=== PATIENT | female | born 1960 | race Caucasian/White ===

== ENCOUNTER 2018-05-14 16:56 | Emergency (ER) | payer BC, MEDICARE ==
[2018-05-14 17:45] VITALS: TEMP 98.1
[2018-05-14] MEDS ORDERED: DIAZEPAM 2 MG TAB PO STA (18:55)
--- NOTE | 2018-05-14 19:06 | ED ---
General Adult HPI - General Chief complaint: Recheck/Abnormal Lab/Rx Stated complaint: withdrawals Time Seen by Provider: 05/14/18 18:19 Source: patient, family, RN notes reviewed Mode of arrival: ambulatory Limitations: no limitations - History of Present Illness Initial comments: 57-year-old female presents to the emergency department for a chief complaint of benzodiazepine withdrawal x 3 days. Patient states she has been on Xanax for anxiety and depression which she takes for sleep at night. Patient states she has prescribed 2 mg at night to sleep. Patient states that she has been "double dosing" and taking 4 mg at night to sleep because 2 mg is not helping. Patient states that she ran out of her prescription of Xanax about 3 days ago. She does still have her [place]. She states that she has developed tremors and feels shaky. Patient admits to mild diaphoresis. She states she has not slept much last night. Patient denies any thoughts of suicide or harming herself. Patient denies any thoughts of harming anyone else. Patient states she did contact her psychiatrist who normally prescribes her Xanax. She states he would not refill the prescription until he could see her. Patient will be seeing him in 5 days at her appointment. Patient has no other complaints at this time including shortness of breath, difficulty breathing, chest pain, abdominal pain, nausea or vomiting, headache, or visual changes. - Related Data Home Medications Medication Instructions Recorded Confirmed ALPRAZolam [Xanax] 2 mg PO BID 05/14/18 05/14/18 ALPRAZolam [Xanax] 4 mg PO HS 05/14/18 05/14/18 Levothyroxine Sodium [Synthroid] 50 mcg PO DAILY 05/14/18 05/14/18 [place] Carbonate 300 mg PO BID 05/14/18 05/14/18 Melatonin 10 mg PO HS 05/14/18 05/14/18 Omeprazole 10 mg PO DAILY 05/14/18 05/14/18 Topiramate 50 mg PO BID 05/14/18 05/14/18 diphenhydrAMINE HCL [Benadryl] 25 mg PO HS 05/14/18 05/14/18 metFORMIN HCL [Glucophage Xr] 500 mg PO BID 05/14/18 05/14/18 Previous Rx's Medication Instructions Recorded Diazepam [Valium] 2 mg PO Q8HR PRN 3 Days #9 tab 05/14/18 Allergies Allergy/AdvReac Type Severity Reaction Status Date / Time Sulfa (Sulfonamide Allergy Swelling Verified 05/14/18 18:26 Antibiotics) Review of Systems ROS Statement: Those systems with pertinent positive or pertinent negative responses have been documented in the HPI. ROS Other: All systems not noted in ROS Statement are negative. Past Medical History Past Medical History: Hypertension Additional Past Medical History / Comment(s): Denies, "just my mental; bipolar, manic-depressive, schitzophrenia, panic attacks." Insomnia. History of Any Multi-Drug Resistant Organisms: None Reported Past Surgical History: Bariatric Surgery, Bladder Surgery, Section, Hysterectomy Additional Past Surgical History / Comment(s): skin removal december 13, laprascopy on right knee, receives steroid shots for "no cartilage on the knee". Past Anesthesia/Blood Transfusion Reactions: No Reported Reaction Past Psychological History: Anxiety, Bipolar, Depression, Panic Disorder, Schizophrenia Smoking Status: Never smoker Past Alcohol Use History: None Reported Past Drug Use History: Marijuana, Prescription Drug Abuse - Past Family History Father Family Medical History: No Reported History Mother Family Medical History: Cancer, Musculoskeletal Disorder, Neurologic Disorder, Pulmonary Embolus Additional Family Medical History / Comment(s): sister, Cerebral Palsy. Mom ( broken heart syndrome) related to son's . In which he of ETOH. General Exam Limitations: no limitations General appearance: alert (patient is sitting up in bed alert and cooperative), anxious (patient does appear anxious, ) Head exam: Present: atraumatic, normocephalic, normal inspection Eye exam: Present: normal appearance. Absent: scleral icterus, conjunctival injection ENT exam: Present: normal exam, normal oropharynx, mucous membranes moist, normal external ear exam Neck exam: Present: normal inspection, full ROM. Absent: tenderness, meningismus, lymphadenopathy Respiratory exam: Present: normal lung sounds bilaterally. Absent: respiratory distress, wheezes, rales, rhonchi, stridor Cardiovascular Exam: Present: regular rate, normal rhythm, normal heart sounds. Absent: systolic murmur, diastolic murmur, rubs, gallop, clicks GI/Abdominal exam: Present: soft, normal bowel sounds. Absent: distended, tenderness, guarding, rebound, rigid Extremities exam: Present: full ROM (moving all extremities without difficulty) Neurological exam: Present: alert, oriented X3, CN II-XII intact. Absent: motor sensory deficit Psychiatric exam: Present: anxious. Absent: homicidal ideation, suicidal ideation Skin exam: Present: warm, dry, intact, normal color. Absent: rash, diaphoretic Course Vital Signs 05/14/18 05/14/18 17:40 20:24 Temperature 98.1 F Pulse Rate 86 65 Respiratory 18 20 Rate Blood Pressure 168/101 157/71 O2 Sat by Pulse 99 97 Oximetry Medical Decision Making - Medical Decision Making 57-year-old female presents to the emergency department for a chief complaint of Xanax withdrawal. Patient has tremors and appears to be anxious. Patient denies any chest pain shortness of breath difficulty breathing nausea vomiting or abdominal pain. She states she is not able to sleep. Patient states she has been doubling her dose of Xanax. Psychiatrist is aware and refusing to prescribed until he sees her in 5 days at her appointment. No diaphoresis noted. Heart rate 86. Patient does seem anxious but is alert and oriented. She is cooperative. Patient was given Valium which did help her to feel better. On reevaluation patient states she is feeling much better and her shakiness has decreased. She will be given a prescription for PRN Valium when she begins to develop symptoms. She is to follow-up at her scheduled appointment in 5 days for her medication refill. She is to return to the emergency Department if she has any worsening symptoms which patient voices being aware of. This case was discussed with Dr Wooten. Disposition Clinical Impression: Benzodiazepine dependence Disposition: HOME SELF-CARE Condition: Good Instructions: Benzodiazepine Abuse (ED) Additional Instructions: Please take Valium as needed. Please follow up with psychiatrist at your scheduled appointment in 5 days. Call to see if you can be seen earlier. Return to the emergency department if you've any worsening symptoms. Prescriptions: Diazepam [Valium] 2 mg PO Q8HR PRN 3 Days #9 tab PRN Reason: Anxiety Is patient prescribed a controlled substance at d/c from ED?: No Referrals: Francisca Ewing NPC [REFERRING] - 1-2 days Time of Disposition: 20:03
[2018-05-14 20:30] VITALS: BP 157/71; PULSE 65; RESP 20
== END 2018-05-14 20:34 | disposition home or self-care (01) ==
LOC: SUPCPDRO 16:56 → EC 16:56
DX: F13.20 Sedative, hypnotic or anxiolytic dependence, uncomplicated (principal); R25.1 Tremor, unspecified; F41.0 Panic disorder [episodic paroxysmal anxiety]; F31.9 Bipolar disorder, unspecified; Z79.84 Long term (current) use of oral hypoglycemic drugs; Z79.899 Other long term (current) drug therapy; Z88.2 Allergy status to sulfonamides
CPT/HCPCS: 99283

== ENCOUNTER 2019-07-13 09:53 | Emergency (ER) | payer BC, MEDICARE ==
[2019-07-13] MEDS ORDERED: SODIUM CHLORIDE 0.9% 1,000 ML IV STA (10:18)
[2019-07-13] MEDS ORDERED: ONDANSETRON 4 MG/2 ML VIAL IVP STA (10:18)
[2019-07-13] MEDS ORDERED: KETOROLAC 30 MG/ML 1 ML VIAL IVP STA (10:18)
[2019-07-13] MEDS ORDERED: LORazepam 2 MG/ML INJ IV STA (10:19)
--- NOTE | 2019-07-13 10:44 | ED ---
General Adult HPI - General Chief complaint: Anxiety Stated complaint: Back Pain, Nausea, Anxiety Time Seen by Provider: 07/13/19 10:05 Source: patient, RN notes reviewed Mode of arrival: wheelchair Limitations: no limitations - History of Present Illness Initial comments: This a 58-year-old female presents emergency Department chief complaint of abdominal pain, nausea vomiting, anxiety and suicidal ideation. Patient states that she started getting sick over the last few days where she cannot hold down her medications. She's had excessive vomiting, diarrhea and right lower quadrant abdominal pain. She states pain comes and goes. She states it makes his difficulty urinating. She reports no fevers chills. She states that she does get hot and cold flashes. She denies chest pain or shortness breath. Patient states that she just wants having to and she states she cannot take her anxiety event or lithium states that she feels suicidal. Patient did admit that she had some back pain or right-sided flank pain more week ago but that resolve d. Patient denies any sick contacts. Patient denies being homicidal - Related Data Home Medications Medication Instructions Recorded Confirmed ALPRAZolam [Xanax] 2 mg PO BID 05/14/18 05/14/18 ALPRAZolam [Xanax] 4 mg PO HS 05/14/18 05/14/18 Levothyroxine Sodium [Synthroid] 50 mcg PO DAILY 05/14/18 05/14/18 [place] Carbonate 300 mg PO BID 05/14/18 05/14/18 Melatonin 10 mg PO HS 05/14/18 05/14/18 Omeprazole 10 mg PO DAILY 05/14/18 05/14/18 Topiramate 50 mg PO BID 05/14/18 05/14/18 diphenhydrAMINE HCL [Benadryl] 25 mg PO HS 05/14/18 05/14/18 metFORMIN HCL [Glucophage Xr] 500 mg PO BID 05/14/18 05/14/18 Previous Rx's Medication Instructions Recorded Diazepam [Valium] 2 mg PO Q8HR PRN 3 Days #9 tab 05/14/18 Cephalexin [Keflex] 500 mg PO Q8HR #21 cap 07/13/19 Ondansetron Odt [Zofran Odt] 4 mg PO Q8HR PRN #10 tab 07/13/19 Allergies Allergy/AdvReac Type Severity Reaction Status Date / Time diphenhydramine Allergy Swelling Verified 07/13/19 11:32 [From Benadryl] Sulfa (Sulfonamide Allergy Swelling Verified 07/13/19 11:32 Antibiotics) Review of Systems ROS Statement: Those systems with pertinent positive or pertinent negative responses have been documented in the HPI. ROS Other: All systems not noted in ROS Statement are negative. Past Medical History Past Medical History: Hypertension Additional Past Medical History / Comment(s): Denies, "just my mental; bipolar, manic-depressive, schitzophrenia, panic attacks." Insomnia. History of Any Multi-Drug Resistant Organisms: None Reported Past Surgical History: Bariatric Surgery, Bladder Surgery, Section, Hysterectomy Additional Past Surgical History / Comment(s): skin removal december 13, laprascopy on right knee, receives steroid shots for "no cartilage on the knee". Past Anesthesia/Blood Transfusion Reactions: No Reported Reaction Past Psychological History: Anxiety, Bipolar, Depression, Panic Disorder, Schizophrenia Smoking Status: Never smoker Past Alcohol Use History: None Reported Past Drug Use History: Marijuana, Prescription Drug Abuse - Past Family History Father Family Medical History: No Reported History Mother Family Medical History: Cancer, Musculoskeletal Disorder, Neurologic Disorder, Pulmonary Embolus Additional Family Medical History / Comment(s): sister, Cerebral Palsy. Mom (broken heart syndrome) related to son's . In which he of ETOH. General Exam Limitations: no limitations General appearance: alert, in no apparent distress, anxious Head exam: Present: atraumatic, normocephalic, normal inspection Eye exam: Present: normal appearance, PERRL, EOMI. Absent: scleral icterus, conjunctival injection, periorbital swelling ENT exam: Present: normal exam, mucous membranes moist Neck exam: Present: normal inspection. Absent: tenderness, meningismus, lymphadenopathy Respiratory exam: Present: normal lung sounds bilaterally. Absent: respiratory distress, wheezes, rales, rhonchi, stridor Cardiovascular Exam: Present: normal rhythm, tachycardia, normal heart sounds. Absent: systolic murmur, diastolic murmur, rubs, gallop, clicks GI/Abdominal exam: Present: soft, tenderness (Moderate right-sided), normal bowel sounds. Absent: distended, guarding, rebound, rigid Back exam: Present: normal inspection, full ROM. Absent: tenderness, CVA tenderness (R), CVA tenderness (L), paraspinal tenderness, vertebral tenderness Neurological exam: Present: alert, oriented X3, CN II-XII intact Psychiatric exam: Present: anxious Skin exam: Present: warm, dry, intact, normal color. Absent: rash Course Vital Signs 07/13/19 09:58 Temperature 98.6 F Pulse Rate 109 H Respiratory 24 Rate Blood Pressure 182/84 O2 Sat by Pulse 99 Oximetry Medical Decision Making - Medical Decision Making Patient presented for multiple complaints. Patient lab urinalysis and CT CT was nonspecific findings including fatty liver, gallstones. Patient's found to have urinary tract infection, was moderately dehydrated lactic acid was elevated. Patient given 2 L of fluid, antiemetics and Rocephin. Patient symptoms greatly improved. Patient evaluated by EPS case discussed with psychiatrist patient is not suicidal she states that she said irrational things while she was in distress. Patient signs a safety plan. Patient offered admission for UTI patient declines patient will be discharged on antibiotics and antibiotics. - Lab Data Result diagrams: 07/13/19 10:34 07/13/19 10:34 Lab Results 07/13/19 07/13/19 07/13/19 Range/Units 10:34 10:34 10:34 WBC 9.8 (3.8-10.6) k/uL RBC 5.74 H (3.80-5.40) m/uL Hgb 15.7 (11.4-16.0) gm/dL Hct 47.1 H (34.0-46.0) % MCV 82.1 (80.0-100.0) fL MCH 27.4 (25.0-35.0) pg MCHC 33.4 (31.0-37.0) g/dL RDW 14.3 (11.5-15.5) % Plt Count 230 (150-450) k/uL Neutrophils % 69 % Lymphocytes % 23 % Monocytes % 4 % Eosinophils % 2 % Basophils % 1 % Neutrophils # 6.7 (1.3-7.7) k/uL Lymphocytes # 2.3 (1.0-4.8) k/uL Monocytes # 0.4 (0-1.0) k/uL Eosinophils # 0.2 (0-0.7) k/uL Basophils # 0.1 (0-0.2) k/uL Sodium 143 (137-145) mmol/L Potassium 4.1 (3.5-5.1) mmol/L Chloride 109 H (98-107) mmol/L Carbon Dioxide 20 L (22-30) mmol/L Anion Gap 14 mmol/L BUN 16 (7-17) mg/dL Creatinine 1.00 (0.52-1.04) mg/dL Est GFR (CKD-EPI)AfAm 73 (>60 ml/min/1.73 sqM) Est GFR (CKD-EPI)NonAf 64 (>60 ml/min/1.73 sqM) Glucose 161 H (74-99) mg/dL Plasma Lactic Acid Junior 2.7 H* (0.7-2.0) mmol/L Calcium 10.6 H (8.4-10.2) mg/dL Total Bilirubin 1.0 (0.2-1.3) mg/dL AST 47 H (14-36) U/L ALT 44 (9-52) U/L Alkaline Phosphatase 88 (38-126) U/L Troponin I (0.000-0.034) ng/mL Total Protein 8.7 H (6.3-8.2) g/dL Albumin 4.8 (3.5-5.0) g/dL Amylase 39 (30-110) U/L Lipase 159 (23-300) U/L Urine Color Urine Appearance (Clear) Urine pH (5.0-8.0) Ur Specific [place] (1.001-1.035) Urine Protein (Negative) Urine Glucose (UA) (Negative) Urine Ketones (Negative) Urine Blood (Negative) Urine Nitrite (Negative) Urine Bilirubin (Negative) Urine Urobilinogen (<2.0) mg/dL Ur Leukocyte Esterase (Negative) Urine RBC (0-5) /hpf Urine WBC (0-5) /hpf Ur Squamous Epith Cells (0-4) /hpf Urine Bacteria (None) /hpf Urine Mucus (None) /hpf Urine Opiates Screen (NotDetected) Ur Oxycodone Screen (NotDetected) Urine Methadone Screen (NotDetected) Ur Propoxyphene Screen (NotDetected) Ur Barbiturates Screen (NotDetected) U Tricyclic Antidepress (NotDetected) Ur Phencyclidine Scrn (NotDetected) Ur Amphetamines Screen (NotDetected) U Methamphetamines Scrn (NotDetected) U Benzodiazepines Scrn (NotDetected) Urine Cocaine Screen (NotDetected) U Marijuana (THC) Screen (NotDetected) 07/13/19 07/13/19 Range/Units 10:34 11:33 WBC (3.8-10.6) k/uL RBC (3.80-5.40) m/uL Hgb (11.4-16.0) gm/dL Hct (34.0-46.0) % MCV (80.0-100.0) fL MCH (25.0-35.0) pg MCHC (31.0-37.0) g/dL RDW (11.5-15.5) % Plt Count (150-450) k/uL Neutrophils % % Lymphocytes % % Monocytes % % Eosinophils % % Basophils % % Neutrophils # (1.3-7.7) k/uL Lymphocytes # (1.0-4.8) k/uL Monocytes # (0-1.0) k/uL Eosinophils # (0-0.7) k/uL Basophils # (0-0.2) k/uL Sodium (137-145) mmol/L Potassium (3.5-5.1) mmol/L Chloride (98-107) mmol/L Carbon Dioxide (22-30) mmol/L Anion Gap mmol/L BUN (7-17) mg/dL Creatinine (0.52-1.04) mg/dL Est GFR (CKD-EPI)AfAm (>60 ml/min/1.73 sqM) Est GFR (CKD-EPI)NonAf (>60 ml/min/1.73 sqM) Glucose (74-99) mg/dL Plasma Lactic Acid Junior (0.7-2.0) mmol/L Calcium (8.4-10.2) mg/dL Total Bilirubin (0.2-1.3) mg/dL AST (14-36) U/L ALT (9-52) U/L Alkaline Phosphatase (38-126) U/L Troponin I <0.012 (0.000-0.034) ng/mL Total Protein (6.3-8.2) g/dL Albumin (3.5-5.0) g/dL Amylase (30-110) U/L Lipase (23-300) U/L Urine Color Yellow Urine Appearance Cloudy H (Clear) Urine pH 6.0 (5.0-8.0) Ur Specific [place] 1.027 (1.001-1.035) Urine Protein 1+ H (Negative) Urine Glucose (UA) Negative (Negative) Urine Ketones 1+ H (Negative) Urine Blood Negative (Negative) Urine Nitrite Positive H (Negative) Urine Bilirubin Negative (Negative) Urine Urobilinogen <2.0 (<2.0) mg/dL Ur Leukocyte Esterase Large H (Negative) Urine RBC 2 (0-5) /hpf Urine WBC >182 H (0-5) /hpf Ur Squamous Epith Cells 4 (0-4) /hpf Urine Bacteria Many H (None) /hpf Urine Mucus Rare H (None) /hpf Urine Opiates Screen Detected H (NotDetected) Ur Oxycodone Screen Not Detected (NotDetected) Urine Methadone Screen Not Detected (NotDetected) Ur Propoxyphene Screen Not Detected (NotDetected) Ur Barbiturates Screen Not Detected (NotDetected) U Tricyclic Antidepress Not Detected (NotDetected) Ur Phencyclidine Scrn Not Detected (NotDetected) Ur Amphetamines Screen Not Detected (NotDetected) U Methamphetamines Scrn Not Detected (NotDetected) U Benzodiazepines Scrn Detected H (NotDetected) Urine Cocaine Screen Not Detected (NotDetected) U Marijuana (THC) Screen Detected H (NotDetected) Disposition Clinical Impression: Acute anxiety, Gastroenteritis, Urinary tract infection Disposition: HOME SELF-CARE Condition: Stable Instructions (If sedation given, give patient instructions): Generalized Anxiety Disorder (ED) Additional Instructions: Please return to the Emergency Department if symptoms worsen or any other concerns. Prescriptions: Cephalexin [Keflex] 500 mg PO Q8HR #21 cap Ondansetron Odt [Zofran Odt] 4 mg PO Q8HR PRN #10 tab PRN Reason: Nausea Is patient prescribed a controlled substance at d/c from ED?: No Referrals: Francisca Ewing NPC [REFERRING] - 1-2 days Time of Disposition: 13:45
[2019-07-13 11:03] LABS: Basophils # (A) 0.1 k/uL (0-0.2); Basophils % (A) 1 %; Eosinophils # (A) 0.2 k/uL (0-0.7); Eosinophils % (A) 2 %; HCT 47.1 % (34.0-46.0); HGB 15.7 gm/dL (11.4-16.0); Lymphocytes # (A) 2.3 k/uL (1.0-4.8); Lymphocytes % (A) 23 %; MCH 27.4 pg (25.0-35.0); MCHC 33.4 g/dL (31.0-37.0); MCV 82.1 fL (80.0-100.0); Mean Platelet Volume 9.2; Monocytes # (A) 0.4 k/uL (0-1.0); Monocytes % (A) 4 %; Neutrophils # (A) 6.7 k/uL (1.3-7.7); Neutrophils % (A) 69 %; Platelet Count 230 k/uL (150-450); RBC 5.74 m/uL (3.80-5.40); RDW 14.3 % (11.5-15.5); WBC 9.8 k/uL (3.8-10.6)
--- NOTE | 2019-07-13 11:21 | CT ---
EXAMINATION TYPE: CT abdomen pelvis wo con DATE OF EXAM: 07/13/2019 COMPARISON: 01/[birth year]/1950 HISTORY: Back pain, nausea, anxiety CT DLP: 1282 mGycm Automated exposure control for dose reduction was used. TECHNIQUE: Helical acquisition of images was performed from the lung bases through the pelvis. FINDINGS: The lungs are clear. There is a tiny pericardial effusion. Low attenuation involving the liver sugges tive of fatty infiltration there is a tiny gallstone. No hydronephrosis. No nephrolithiasis. Adrenal glands normal. By noncontrast technique the pancreas d emonstrates no abnormality. Bowel gas pattern nonspecific. There is a small hiatal hernia. No evidence of bowel obstruction. Ramesh ges of diverticulosis noted. No free fluid. Bladder is nondistended. Calcifications in pelvis are vascular: A somewhat decompresse d and limited in assessment. Appendix is not seen with certainty. No inflammatory changes in the righ t lower quadrant. Degenerative change involving the lower lumbar spine with severe changes L5-S1. Arthropathy of the hi ps noted. IMPRESSION: 1. Findings suggest hepatic steatosis. 2. Nonspecific gas pattern with no obstruction. 3. Small hiatal hernia. 4. Cholelithiasis
[2019-07-13 11:25] LABS: Albumin 4.8 g/dL (3.5-5.0); Calcium 10.6 mg/dL (8.4-10.2); Potassium 4.1 mmol/L (3.5-5.1); Total Protein 8.7 g/dL (6.3-8.2)
[2019-07-13] MEDS ORDERED: SODIUM CHLORIDE 0.9% 1,000 ML IV ONE (11:34)
[2019-07-13] MEDS ORDERED: METOCLOPRAMIDE 5 MG/ML 2 ML VIAL IVP STA (11:36)
[2019-07-13 12:05] LABS: Appearance,Urine Cloudy (Clear); Bacteria,Urine Many /hpf; Bilirubin,Urine Negative (Negative); Blood,Urine Negative (Negative); Color,Urine Yellow; Glucose,Urine (UA) Negative (Negative); Ketones,Urine 1+ (Negative); Leukocyte Esterase,Urine Large (Negative); Mucus,Urine Rare /hpf; Nitrite,Urine Positive (Negative); Protein,Urine 1+ (Negative); RBC,Urine 2 /hpf (0-5); Specific Gravity,Urine 1.027 (1.001-1.035); Squamous Epithelial Cell,Urine 4 /hpf (0-4); Urobilinogen,Urine <2.0 mg/dL (<2.0); WBC,Urine >182 /hpf (0-5)
[2019-07-13 12:06] LABS: Amphetamine Screen,Urine Not Detected (NotDetected); Barbiturate Screen,Urine Not Detected (NotDetected); Benzodiazepines Screen,Urine Detected (NotDetected); Cocaine Screen,Urine Not Detected (NotDetected); Methadone Screen, Urine Not Detected (NotDetected); Opiate Screen,Urine Detected (NotDetected); Oxycodone Screen, Urine Not Detected (NotDetected); Phencyclidine Screen,Urine Not Detected (NotDetected); Tricyclic Antidepressant,Urine Not Detected (NotDetected); Urn Cannabinoid Scrn Detected (NotDetected)
[2019-07-13] MEDS ORDERED: cefTRIAXone IN SWFI 1,000 MG/10 ML SYRINGE IVP STA (12:20)
[2019-07-13 14:03] VITALS: BP 128/76; PULSE 82; RESP 18; TEMP 97.8
== END 2019-07-13 14:02 | disposition home or self-care (01) ==
LOC: EC 09:53
DX: F41.9 Anxiety disorder, unspecified (principal); K52.9 Noninfective gastroenteritis and colitis, unspecified; N39.0 Urinary tract infection, site not specified; K80.20 Calculus of gallbladder without cholecystitis without obstruction; K76.0 Fatty (change of) liver, not elsewhere classified; E86.0 Dehydration; R74.0 Nonspecific elevation of levels of transaminase and lactic acid dehydrogenase [LDH]; I10 Essential (primary) hypertension; F41.0 Panic disorder [episodic paroxysmal anxiety]; G47.00 Insomnia, unspecified; F20.9 Schizophrenia, unspecified; Z88.2 Allergy status to sulfonamides; Z88.8 Allergy status to other drugs, medicaments and biological substances; Z79.899 Other long term (current) drug therapy
CPT/HCPCS: 82075; 36415; 80053; 82150; 83605; 83690; 84484; 85025; 81001; 80306; 87086; 87077; 87186; 74176; 99284; 96374; 96375 ×4; 96361 ×2; J2060; J2765; J2405; J0696; J1885

== ENCOUNTER 2021-10-31 20:42 | Emergency (ER) | payer BC, MEDICARE ==
[2021-10-31] MEDS ORDERED: LORazepam 2 MG/ML INJ IV STA (22:11)
--- NOTE | 2021-10-31 22:26 | ED ---
General Adult HPI - General Chief complaint: Recheck/Abnormal Lab/Rx Stated complaint: Syncope/SOB Time Seen by Provider: 10/31/21 21:32 Source: patient, family Mode of arrival: wheelchair Limitations: no limitations - History of Present Illness Initial comments: This patient is a 61-year-old woman who is here to have evaluation after she had a sort of episode at home approximately 90 minutes ago. The patient had taken a shower and then was sitting on the commode in the bathroom when she felt extremely funny. She felt very cold and shaky. She is experiencing a generalized weakness. When her went to see her. He states that she was sitting on the commode very tremulous, as she has been previously with severe panic attack. He states that she was looking at him and her eyes were crossed. She then became even more shaky and her eyes rolled back. He smacked her face a couple of times to see if she would regain consciousness. He states that after number seconds she seemed to come to but her eyes were still crossed and she was still shaky. There was no loss of continence. The patient did not fall or have any injury. She does note she has been having about 2 weeks where she has not felt like her usual self. She has been very cold and fatigued. She has had some bilateral rib pains. Onset/Timin -: minutes(s) Radiation: other (Bilateral ribs) Quality: aching Consistency: constant Improves with: none Worsens with: movement - Related Data Home Medications Medication Instructions Recorded Confirmed ALPRAZolam [Xanax] 4 mg PO HS 05/14/18 10/31/21 Escitalopram [Lexapro] 40 mg PO DAILY 10/31/21 10/31/21 Melatonin 30 mg PO HS 10/31/21 10/31/21 Allergies Allergy/AdvReac Type Severity Reaction Status Date / Time diphenhydramine Allergy Facial Verified 10/31/21 23:15 [From Benadryl] Swelling/SOB Sulfa (Sulfonamide Allergy Facial Verified 10/31/21 23:15 Antibiotics) Swelling/SOB Review of Systems ROS Statement: Those systems with pertinent positive or pertinent negative responses have been documented in the HPI. ROS Other: All systems not noted in ROS Statement are negative. Constitutional: Reports: chills, weakness Eyes: Denies: eye pain, vision change ENT: Denies: congestion Respiratory: Denies: cough, dyspnea, wheezes Cardiovascular: Denies: chest pain, palpitations, orthopnea, edema, syncope Gastrointestinal: Denies: abdominal pain, nausea, vomiting, diarrhea, constipation Genitourinary: Denies: dysuria, hematuria Musculoskeletal: Denies: back pain Skin: Denies: rash Neurological: Denies: headache, weakness, numbness Psychiatric: Reports: anxiety Past Medical History Past Medical History: Hypertension Additional Past Medical History / Comment(s): Denies, "just my mental; bipolar, manic-depressive, schitzophrenia, panic attacks." Insomnia. History of Any Multi-Drug Resistant Organisms: None Reported Past Surgical History: Bariatric Surgery, Bladder Surgery, Section, Hysterectomy Additional Past Surgical History / Comment(s): skin removal december 13, laprascopy on right knee, receives steroid shots for "no cartilage on the knee". Past Anesthesia/Blood Transfusion Reactions: No Reported Reaction Past Psychological History: Anxiety, Bipolar, Depression, Panic Disorder, Schizophrenia Smoking Status: Never smoker Past Alcohol Use History: None Reported Past Drug Use History: Marijuana, Prescription Drug Abuse - Past Family History Father Family Medical History: No Reported History Mother Family Medical History: Cancer, Musculoskeletal Disorder, Neurologic Disorder, Pulmonary Embolus Additional Family Medical History / Comment(s): sister, Cerebral Palsy. Mom (broken heart syndrome) related to son's . In which he of ETOH. General Exam Limitations: no limitations General appearance: alert, in no apparent distress, anxious Head exam: Present: atraumatic, normocephalic Eye exam: Present: normal appearance, PERRL, EOMI. Absent: scleral icterus, conjunctival injection ENT exam: Present: mucous membranes dry Neck exam: Present: normal inspection, full ROM Respiratory exam: Present: normal lung sounds bilaterally. Absent: respiratory distress, wheezes, rales, rhonchi, stridor Cardiovascular Exam: Present: normal rhythm, tachycardia, normal heart sounds. Absent: systolic murmur, diastolic murmur, rubs, gallop GI/Abdominal exam: Present: soft. Absent: distended, tenderness, guarding, rebound, rigid, mass Extremities exam: Present: normal inspection, normal capillary refill. Absent: pedal edema, calf tenderness Back exam: Present: normal inspection. Absent: CVA tenderness (R), CVA t enderness (L) Neurological exam: Present: alert, oriented X3, CN II-XII intact. Absent: motor sensory deficit Skin exam: Present: warm, dry, intact, normal color. Absent: rash Course Vital Signs 10/31/21 10/31/21 11/01/21 20:51 23:00 00:05 Temperature 98.7 F 98.4 F Pulse Rate 123 H 92 79 Respiratory 28 H 16 18 Rate Blood Pressure 103/54 137/86 136/93 O2 Sat by Pulse 98 97 97 Oximetry EKG Findings - EKG Results: EKG: interpreted by STORMY, sinus rhythm EKG shows: tachycardia (Rate 101 bpm) - Blocks, Thornton, Hypertrophy, ST Abn: AV and intraventricular conduction: right bundle branch block (fixed/intermittent, complete/incomplete) (Incomplete) QRS axis and voltage: pulmonary disease Medical Decision Making - Lab Data Result diagrams: 10/31/21 22:40 10/31/21 22:40 Lab Results 10/31/21 10/31/21 10/31/21 Range/Units 22:40 22:40 22:40 WBC 11.3 H (3.8-10.6) k/uL RBC 5.59 H (3.80-5.40) m/uL Hgb 16.1 H (11.4-16.0) gm/dL Hct 46.9 H (34.0-46.0) % MCV 83.9 (80.0-100.0) fL MCH 28.8 (25.0-35.0) pg MCHC 34.3 (31.0-37.0) g/dL RDW 14.7 (11.5-15.5) % Plt Count 220 (150-450) k/uL MPV 9.4 Neutrophils % 73 % Lymphocytes % 21 % Monocytes % 3 % Eosinophils % 1 % Basophils % 1 % Neutrophils # 8.3 H (1.3-7.7) k/uL Lymphocytes # 2.3 (1.0-4.8) k/uL Monocytes # 0.4 (0-1.0) k/uL Eosinophils # 0.1 (0-0.7) k/uL Basophils # 0.1 (0-0.2) k/uL PT (9.0-12.0) sec INR (<1.2) APTT (22.0-30.0) sec Sodium 140 (137-145) mmol/L Potassium 4.3 (3.5-5.1) mmol/L Chloride 105 (98-107) mmol/L Carbon Dioxide 21 L (22-30) mmol/L Anion Gap 14 mmol/L BUN 15 (7-17) mg/dL Creatinine 0.99 (0.52-1.04) mg/dL Est GFR (CKD-EPI)AfAm 72 (>60 ml/min/1.73 sqM) Est GFR (CKD-EPI)NonAf 63 (>60 ml/min/1.73 sqM) Glucose 104 H (74-99) mg/dL Calcium 9.6 (8.4-10.2) mg/dL Total Bilirubin 1.1 (0.2-1.3) mg/dL AST 41 H (14-36) U/L ALT 27 (4-34) U/L Alkaline Phosphatase 77 (38-126) U/L Troponin I <0.012 (0.000-0.034) ng/mL Total Protein 8.9 H (6.3-8.2) g/dL Albumin 4.8 (3.5-5.0) g/dL Urine Color Urine Appearance (Clear) Urine pH (5.0-8.0) Ur Specific [place] (1.001-1.035) Urine Protein (Negative) Urine Glucose (UA) (Negative) Urine Ketones (Negative) Urine Blood (Negative) Urine Nitrite (Negative) Urine Bilirubin (Negative) Urine Urobilinogen (<2.0) mg/dL Ur Leukocyte Esterase (Negative) Urine RBC (0-5) /hpf Urine WBC (0-5) /hpf Ur Squamous Epith Cells (0-4) /hpf Calcium Oxalate Crystal (None) /hpf Urine Bacteria (None) /hpf Hyaline Casts (0-2) /lpf Urine Mucus (None) /hpf Urine Opiates Screen (NotDetected) Ur Oxycodone Screen (NotDetected) Urine Methadone Screen (NotDetected) Ur Propoxyphene Screen (NotDetected) Ur Barbiturates Screen (NotDetected) U Tricyclic Antidepress (NotDetected) Ur Phencyclidine Scrn (NotDetected) Ur Amphetamines Screen (NotDetected) U Methamphetamines Scrn (NotDetected) U Benzodiazepines Scrn (NotDetected) Urine Cocaine Screen (NotDetected) U Marijuana (THC) Screen (NotDetected) 10/31/21 11/01/21 Range/Units 22:40 00:10 WBC (3.8-10.6) k/uL RBC (3.80-5.40) m/uL Hgb (11.4-16.0) gm/dL Hct (34.0-46.0) % MCV (80.0-100.0) fL MCH (25.0-35.0) pg MCHC (31.0-37.0) g/dL RDW (11.5-15.5) % Plt Count (150-450) k/uL MPV Neutrophils % % Lymphocytes % % Monocytes % % Eosinophils % % Basophils % % Neutrophils # (1.3-7.7) k/uL Lymphocytes # (1.0-4.8) k/uL Monocytes # (0-1.0) k/uL Eosinophils # (0-0.7) k/uL Basophils # (0-0.2) k/uL PT 10.9 (9.0-12.0) sec INR 1.0 (<1.2) APTT 22.3 (22.0-30.0) sec Sodium (137-145) mmol/L Potassium (3.5-5.1) mmol/L Chloride (98-107) mmol/L Carbon Dioxide (22-30) mmol/L Anion Gap mmol/L BUN (7-17) mg/dL Creatinine (0.52-1.04) mg/dL Est GFR (CKD-EPI)AfAm (>60 ml/min/1.73 sqM) Est GFR (CKD-EPI)NonAf (>60 ml/min/1.73 sqM) Glucose (74-99) mg/dL Calcium (8.4-10.2) mg/dL Total Bilirubin (0.2-1.3) mg/dL AST (14-36) U/L ALT (4-34) U/L Alkaline Phosphatase (38-126) U/L Troponin I (0.000-0.034) ng/mL Total Protein (6.3-8.2) g/dL Albumin (3.5-5.0) g/dL Urine Color Yellow Urine Appearance Cloudy H (Clear) Urine pH 6.0 (5.0-8.0) Ur Specific [place] 1.028 (1.001-1.035) Urine Protein 1+ H (Negative) Urine Glucose (UA) Negative (Negative) Urine Ketones 1+ H (Negative) Urine Blood Negative (Negative) Urine Nitrite Positive H (Negative) Urine Bilirubin Negative (Negative) Urine Urobilinogen <2.0 (<2.0) mg/dL Ur Leukocyte Esterase Moderate H (Negative) Urine RBC 2 (0-5) /hpf Urine WBC 33 H (0-5) /hpf Ur Squamous Epith Cells 2 (0-4) /hpf Calcium Oxalate Crystal Many H (None) /hpf Urine Bacteria Many H (None) /hpf Hyaline Casts 13 H (0-2) /lpf Urine Mucus Few H (None) /hpf Urine Opiates Screen Not Detected (NotDetected) Ur Oxycodone Screen Not Detected (NotDetected) Urine Methadone Screen Not Detected (NotDetected) Ur Propoxyphene Screen Not Detected (NotDetected) Ur Barbiturates Screen Not Detected (NotDetected) U Tricyclic Antidepress Not Detected (NotDetected) Ur Phencyclidine Scrn Not Detected (NotDetected) Ur Amphetamines Screen Not Detected (NotDetected) U Methamphetamines Scrn Not Detected (NotDetected) U Benzodiazepines Scrn Detected H (NotDetected) Urine Cocaine Screen Not Detected (NotDetected) U Marijuana (THC) Screen Detected H (NotDetected) Disposition Clinical Impression: Anxiety Narrative: possible seizure Disposition: HOME SELF-CARE Condition: Good Instructions (If sedation given, give patient instructions): Seizure/Epilepsy Discharge Instructions & Follow-Up, Anxiety (ED) Is patient prescribed a controlled substance at d/c from ED?: No Referrals: Jake Riggs MD [Primary Care Provider] - 1-2 days Raghav Spears MD [STAFF PHYSICIAN] - 1-2 days Charis Stern MD [REFERRING] - 1-2 days
[2021-10-31 22:58] LABS: Basophils # (A) 0.1 k/uL (0-0.2); Basophils % (A) 1 %; Eosinophils # (A) 0.1 k/uL (0-0.7); Eosinophils % (A) 1 %; HCT 46.9 % (34.0-46.0); HGB 16.1 gm/dL (11.4-16.0); Lymphocytes # (A) 2.3 k/uL (1.0-4.8); Lymphocytes % (A) 21 %; MCH 28.8 pg (25.0-35.0); MCHC 34.3 g/dL (31.0-37.0); MCV 83.9 fL (80.0-100.0); Mean Platelet Volume 9.4; Monocytes # (A) 0.4 k/uL (0-1.0); Monocytes % (A) 3 %; Neutrophils # (A) 8.3 k/uL (1.3-7.7); Neutrophils % (A) 73 %; Platelet Count 220 k/uL (150-450); RBC 5.59 m/uL (3.80-5.40); RDW 14.7 % (11.5-15.5); WBC 11.3 k/uL (3.8-10.6)
[2021-10-31 23:14] LABS: Albumin 4.8 g/dL (3.5-5.0); Calcium 9.6 mg/dL (8.4-10.2); Potassium 4.3 mmol/L (3.5-5.1); Total Bilirubin 1.1 mg/dL (0.2-1.3); Total Protein 8.9 g/dL (6.3-8.2)
--- NOTE | 2021-10-31 23:15 | CT ---
EXAMINATION TYPE: CT brain wo con DATE OF EXAM: 10/31/2021 COMPARISON: 03/09/2015 HISTORY: Altered mental status CT DLP: mGycm Automated exposure control for dose reduction was used. Ventricles have fairly normal size. There is no mass effect or midline shift. There is no sign of int racranial hemorrhage. Calvarium is intact. There is no evidence of cerebral edema. Skull base is inta ct. IMPRESSION: There is mild cerebral atrophy appropriate for age. No acute intracranial abnormality. No adverse maria eugenia nge.
[2021-10-31 23:17] LABS: Partial Thromboplastin Time 22.3 sec (22.0-30.0); Prothrombin Time 10.9 sec (9.0-12.0)
--- NOTE | 2021-10-31 23:17 | XR ---
EXAMINATION TYPE: XR chest 2V DATE OF EXAM: 10/31/2021 COMPARISON: 03/09/2015 HISTORY: Altered mental status TECHNIQUE: FINDINGS: There is no heart failure nor confluent pneumonic infiltrate. Heart and mediastinum are nor mal. There are no hilar masses. There are chest leads. Costophrenic angles are clear. IMPRESSION: No active cardiopulmonary disease. Normal heart. There is clearing of the mild atelectasi s at the lung bases compared to old exam.
[2021-11-01 00:16] VITALS: RESP 18
[2021-11-01 00:34] LABS: Appearance,Urine Cloudy (Clear); Bacteria,Urine Many /hpf; Bilirubin,Urine Negative (Negative); Blood,Urine Negative (Negative); Calcium Oxalate Crystals,Urine Many /hpf; Color,Urine Yellow; Glucose,Urine (UA) Negative (Negative); Hyaline Casts,Urine 13 /lpf (0-2); Ketones,Urine 1+ (Negative); Leukocyte Esterase,Urine Moderate (Negative); Mucus,Urine Few /hpf; Nitrite,Urine Positive (Negative); Protein,Urine 1+ (Negative); RBC,Urine 2 /hpf (0-5); Specific Gravity,Urine 1.028 (1.001-1.035); Squamous Epithelial Cell,Urine 2 /hpf (0-4); Urobilinogen,Urine <2.0 mg/dL (<2.0); WBC,Urine 33 /hpf (0-5)
[2021-11-01 00:50] LABS: Amphetamine Screen,Urine Not Detected (NotDetected); Barbiturate Screen,Urine Not Detected (NotDetected); Benzodiazepines Screen,Urine Detected (NotDetected); Cocaine Screen,Urine Not Detected (NotDetected); Methadone Screen, Urine Not Detected (NotDetected); Opiate Screen,Urine Not Detected (NotDetected); Oxycodone Screen, Urine Not Detected (NotDetected); Phencyclidine Screen,Urine Not Detected (NotDetected); Tricyclic Antidepressant,Urine Not Detected (NotDetected); Urn Cannabinoid Scrn Detected (NotDetected)
[2021-11-01 01:50] VITALS: BP 137/92; PULSE 78; TEMP 98.7
== END 2021-11-01 01:45 | disposition home or self-care (01) ==
LOC: EC 20:42
DX: F41.9 Anxiety disorder, unspecified (principal); I10 Essential (primary) hypertension; F31.9 Bipolar disorder, unspecified; F20.9 Schizophrenia, unspecified
CPT/HCPCS: 36415; 93005; 80053; 84443; 84484; 85025; 85610; 85730; 81001; 87040; 80306; 87086; 71046; 70450; 99285; 96374; J2060